=== PATIENT | female | born 1995 | race Hispanic/Latino ===

== ENCOUNTER 2021-10-15 18:42 | Emergency (ER) | payer OTHER ==
[~2021-10-15] VITALS: Ht 152.4 cm; Wt 52.2 kg
== END 2021-10-15 19:10 | disposition home or self-care (01) ==
LOC: ER 18:59
DX: S86.812A Strain of other muscle(s) and tendon(s) at lower leg level, left leg, initial encounter (principal); V43.52XA Car driver injured in collision with other type car in traffic accident, initial encounter; Y92.488 Other paved roadways as the place of occurrence of the external cause
CPT/HCPCS: 99282